=== PATIENT | male | born 1990 | race Two or more races ===

== ENCOUNTER 2017-05-19 04:31 | Emergency (ER) | payer OTHER, SELFPAY ==
[~2017-05-19] VITALS: Ht 165.1 cm; Wt 68.0 kg
--- NOTE | 2017-05-19 04:45 | Emergency Room Report ---
History of Present Illness General Chief Complaint: To Be Triaged Source: Patient Present Illness HPI Is a 27-year-old male brought in by police for medical clearance. He been arrested for public intoxication. He has an abrasion to his left eye area. He doesn't know what happened. Denies any trauma. No pain. Patient History Past Medical History: see triage record, old chart reviewed Past Surgical History: none Pertinent Family History: none Social History: Reports: alcohol use Immunizations: other Reviewed Nursing Documentation: PMH: Agreed, PSxH: Agreed Review of Systems Eye: Denies: eye pain, blurred vision ENT: Denies: ear pain, nose congestion, throat swelling Respiratory: Denies: cough, shortness of breath Cardiovascular: Denies: chest pain, palpitations Gastrointestinal: Denies: abdominal pain, diarrhea, nausea, vomiting Musculoskeletal: Denies: back pain, joint pain Skin: Denies: rash Neurological: Denies: headache, numbness Endocrine: Denies: increased thirst, increased urine Hematologic/Lymphatic: Denies: easy bruising All Other Systems: negative except mentioned in HPI Physical Exam [id number] EP Interpretation: reviewed, normal General Appearance: well appearing, no apparent distress, alert Head: normocephalic, other - Abrasion to the left lat eye area. Eyes: bilateral eye PERRL, bilateral eye EOMI ENT: hearing grossly normal, normal pharynx Neck: full range of motion, supple, no meningismus Respiratory: chest non-tender, lungs clear, normal breath sounds Cardiovascular #1: regular rate, rhythm, no murmur Gastrointestinal: normal bowel sounds, non tender, no mass, no organomegaly, no bruit, non-distended Musculoskeletal: back normal, gait/station normal, normal range of motion Psychiatric: mood/affect normal Skin: warm/dry Medical Decision Making Diagnostic Impression: Primary Impression: Abrasion, face w/o infection Additional Impression: Alcohol intoxication Qualified Codes: F10.920 - Alcohol use, unspecified with intoxication, uncomplicated ER Course Patient with public intoxication. Has abrasion along the left orbital area. No other trauma. No evidence of intracranial injury. We'll discharge to police. Status: unchanged Disposition: D/C TO LAW ENFORCEMENT IN CUST Condition: Stable Additional Instructions: followup your Dr. in 7 days. Abstain from drinking to excess. Return if worse. JONELLE KAUFFMAN M.D. May 19, 2017 04:45
[2017-05-19] MEDS ORDERED: ADDERAL20 MG ORAL (04:56)
[2017-05-19] MEDS ORDERED: PROZAC10 MG ORAL (04:57)
[2017-05-19 05:25] VITALS: BP 139/93
== END 2017-05-19 05:25 ==
LOC: EMR 04:44
DX: S00.81XA Abrasion of other part of head, initial encounter (principal); X58.XXXA Exposure to other specified factors, initial encounter; Y92.9 Unspecified place or not applicable; F10.129 Alcohol abuse with intoxication, unspecified
CPT/HCPCS: 99283